=== PATIENT | female | born 1980 | race Caucasian/White ===

== ENCOUNTER 2018-11-02 04:55 | Inpatient (IN) ==
--- NOTE | 2018-11-01 08:59 | HP ---
Chief Complaint - Chief Complaint Date of Service: 10/31/18 Time of Service: 10:00 Chief Complaint: Repeat C/S History of Present Illness: 38 yo at 39 weeks presents for repeat c/s with b/l salpingectomy and possible abdominal scar revision. This complicated by AMA, anemia, prior c/s x 2, and morbid obesity with history of gastric sleeve (BMI 44.6). Medical History (Last Updated 08/08/18 @ 16:47 by Eladia Dee RN) History of gestational diabetes (Acute) Tobacco abuse (Acute) Onset Date: 09/02/14 Sinus tachycardia (Acute) Onset Date: 09/02/14 Obesity (Acute) Onset Date: 10/05/14 Antepartum multigravida of advanced maternal age (Acute) Onset Date: 04/04/18 Anemia affecting (Acute) Onset Date: ~2000 w/pregnancies (1999, 2011, 2017) Gestational diabetes Onset Date: 01/2012 Polycystic ovarian syndrome Onset Date: 2006 Hx of echocardiogram Onset Date: 09/10/14 1. EF=60-65% 2. Left ventricular wall motion normal 3. Normal left ventricular wall thickness 4. No evidence of MVP 5. Mild Tricuspid regurg 6. Rt ventricular systolic pressure is 30-40 mmHg 7. Dilated inferior vena cava suggest increased rt atrial pressure Surgical History: Surgical History (Last Updated 05/27/18 @ 10:35 by Paula Lawrence RN) History of sleeve gastrectomy Onset Date: 09/14/16 [facility] Hx of section Onset Date: 1999 1999: Meconium, Disproportion of fetus and pelvis. 2011: Rpt w/ abruption Family History: Family History (Last Updated 05/27/18 @ 14:53 by Paula Lawrence RN) Father No problems noted. Mother Gastric bypass status for obesity Depression Grandfather , Maternal Diabetes Myocardial infarction Grandmother Hypertension Maternal Social History: Preferred Language Citizen Of [place] (Last Updated 10/31/18 @ 11:48 by Moody Powers DO) No Social History Section defined Review Of Systems (GEN) - Review of Systems Generalized/Overall Review: Present: No Symptoms Reported EENTM: Present: No Symptoms Reported Respiratory: Present: No Symptoms Reported Cardiac: Present: No Symptoms Reported Abdominal: Present: No Symptoms Reported Genitourinary: Present: No Symptoms Reported Musculoskeletal: Present: No Symptoms Reported Neurological: Present: No Symptoms Reported Skin: Present: No Symptoms Reported Endocrine: Present: No Symptoms Reported Allergies/Adverse Reactions: Allergies Allergy/AdvReac Type Severity Reaction Status Date / Time No Known Allergies Allergy Verified 10/31/18 10:36 Home Medications: HOME MEDICATIONS vitamin,calcium,rseplxuh-jgbk-uynls acid tablet 1 tab PO DAILY 05/27/18 [Last Taken Unknown] ferrous sulfate 325 mg (65 mg iron) tablet 325 mg PO DAILY #30 tab 08/08/18 [Last Taken Unknown] Exam - Exam Vital Signs: T 36.4, BP 109/66, P 100, R 16, O2 99%, wt 121.4 kg, ht 1.65 m Constitutional: Present: Alert, Oriented x3, Cooperative, No distress ENT Exam: Present: hearing grossly normal Respiratory: Present: lungs clear, no respiratory distress Cardiovascular/Chest: Present: normal peripheral pulses, regular rate, rhythm Abdomen: Present: soft, nontender, no rebound tenderness, other - gravid /Rectal: Present: Exam deferred Extremity: Present: non-tender, no pedal edema, no calf tenderness Skin Exam: Present: normal color, warm/dry, no cyanosis Lymphatic: Present: no adenopathy Neurologic: Present: alert, normal mood/affect, oriented x 3 Appearance: Present: appropriate appearance, appropriate insight Eye contact: Present: cooperative, good eye contact Thoughts: Present: normal thought pattern Assessment/Plan - Assessment/Plan (1) BMI 40.0-44.9, adult Assessment: Admit on 11/02/18 for repeat section with bilateral salpingectomy and possible abdominal scar revision. Problem: Acute (2) Previous delivery affecting Problem: Acute (3) Antepartum multigravida of advanced maternal age Problem: Acute (4) Anemia affecting Problem: Acute (5) Encounter for sterilization Problem: Acute
[2018-11-02] MEDS ORDERED: DEXTROSE 5%-LACTATED RINGERS 1,000 ML IV PRN ×2 (05:02→10:43)
[2018-11-02] MEDS ORDERED: ceFAZolin SODIUM/DEXTROSE,ISO 2 GM/50 ML BAG IV ONE (05:02)
[2018-11-02] MEDS ORDERED: OXYTOCIN 20 UNITS in RINGER'S SOLUTION,LACTATED 1,000 ML IV ONE (05:02)
[2018-11-02] MEDS: RINGER'S SOLUTION,LACTATED 1,000 ML IV PRN ×3 (05:30→08:43)
[2018-11-02] MEDS ORDERED: HYDROmorphone HCL 2 MG/ML VIAL IV ONE ×2 (10:40→10:53)
[2018-11-02] MEDS ORDERED: SENNOSIDES 8.6 MG TABLET PO PRN (10:43)
[2018-11-02] MEDS ORDERED: SIMETHICONE 80 MG TAB.CHEW PO PRN (10:43)
[2018-11-02] MEDS ORDERED: ONDANSETRON HCL/PF 2 MG/ML VIAL IV PRN (10:43)
[2018-11-02] MEDS ORDERED: oxyCODONE HCL/ACETAMINOPHEN 1 TAB TABLET PO PRN (10:43)
[2018-11-02] MEDS ORDERED: BISACODYL 10 MG SUPP.RECT RC PRN (10:43)
--- NOTE | 2018-11-02 10:56 | ANES ---
Anesthesia Pre Procedure Eval Vitals/Labs: Last Vital Signs Temp 36.3 C 11/02/18 10:30 Pulse 109 H 11/02/18 10:50 Resp 18 11/02/18 10:50 BP 117/67 11/02/18 10:50 Pulse Ox 95 11/02/18 10:50 HOME MEDICATIONS vitamin,calcium,qvjmskoe-jkdd-pzshc acid tablet 1 tab PO DAILY 05/27/18 [Last Taken 10/31/18 21:00] ferrous sulfate 325 mg (65 mg iron) tablet 325 mg PO DAILY #30 tab 08/08/18 [Last Taken Unknown] Allergies/Adverse Reactions: Allergies Allergy/AdvReac Type Severity Reaction Status Date / Time No Known Allergies Allergy Verified 11/02/18 05:07 - Planned Procedure Planned Procedure: Section, bilat Salpingectomy, poss abdomi Medication List Reviewed:: Yes Allergies Verified: Yes Medical History (Last Reviewed 11/02/18 @ 10:55 by Luis Manuel Orourke CRNA) History of gestational diabetes (Acute) Tobacco abuse (Acute) Onset Date: 09/02/14 Sinus tachycardia (Acute) Onset Date: 09/02/14 Obesity (Acute) Onset Date: 10/05/14 Antepartum multigravida of advanced maternal age (Acute) Onset Date: 04/04/18 Anemia affecting (Acute) Onset Date: ~1999 w/pregnancies (1999, 2011, 2017) Gestational diabetes Onset Date: 01/2012 Polycystic ovarian syndrome Onset Date: 2006 Hx of echocardiogram Onset Date: 09/10/14 1. EF=60-65% 2. Left ventricular wall motion normal 3. Normal left ventricular wall thickness 4. No evidence of MVP 5. Mild Tricuspid regurg 6. Rt ventricular systolic pressure is 30-40 mmHg 7. Dilated inferior vena cava suggest increased rt atrial pressure Surgical History (Last Reviewed 11/02/18 @ 10:55 by Luis Manuel Orourke CRNA) History of sleeve gastrectomy Onset Date: 09/14/16 [facility] Hx of section Onset Date: 1999 1999: Meconium, Disproportion of fetus and pelvis. 2011: Rpt w/ abruption Family History (Last Reviewed 11/02/18 @ 10:55 by Luis Manuel Orourke CRNA) Father No problems noted. Mother Gastric bypass status for obesity Depression Grandfather , Maternal Diabetes Myocardial infarction Grandmother Hypertension Maternal - Family Anesthesia History Family History:: no untoward family reactions to anesthesia - Airway/Neck/Teeth Within Normal Limits:: Yes Teeth Condition: Intact Denture Type: None Neck Exam: full range of motion Mallampatti Score: 2 Thyromental (T-M) distance: > 6 cm Mandibulo Hyoid distance: > 3 cm - Respiratory Respiratory: lungs clear, no respiratory distress Smoking Status: Never smoker Sleep Apnea currently treated: No Sleep Apnea by current assessment: No - Cardiovascular Patient History - Cardiac/Respiratory: No pertinent hx Tolerates Activity: Fair Heart Sounds: S1 & S2, Regular - Anesthesia Assessment and Plan ASA Class: PS, II Anesthesia Type Plan: Spinal - Bilat TAP block for postop analgesia Planned difficult intubation/equipment available: No
--- NOTE | 2018-11-02 10:56 | ANES ---
Post Anesthesia Discharge - Transfer of Care Transfer of Care handoff given to nurse: Yes - Discharge from PACU Discharge from PACU when meets criteria: Yes
--- NOTE | 2018-11-02 11:03 | OR ---
Operative Report - Dictated Report Narrative: Indication: 38 year old 3 para 2 at 39-2/7 weeks with prior section 2 desiring permanent sterilization, presents for repeat section with bilateral salpingectomy. status: Planned Pre Operative Diagnosis: 39-2/7 week intrauterine , prior section 2, desires permanent sterilization via bilateral salpingectomy Post Operative Diagnosis: Same. Extensive bladder and uterine adhesions Procedure: Repeat low transverse section. Extensive lysis of bladder, uterine, and tubo-ovarian adhesions. Bilateral salpingectomy Surgeon: Tosha Powers DO Hoeing Row Boss: OR Staff Anesthesia: Spinal, general anesthesia Estimated Blood Loss: 1200 mL Urine Output: 100 mL of dark clear urine Fluids Replacement: 2100 mL of crystalloid Drains: Mcintosh to gravity Surgical Complications: None Specimens: Placenta to freezer Findings: Male born at 0854 on 11/02/2020 with Apgars 7 and 9, weighing 3737 g in cephalic presentation with tight nuchal cord 1. Bladder adhesions to the anterior abdominal wall and lower two thirds of the uterus. Dense uterine serosal adhesions to the anterior abdominal wall. Left tubal ovarian adhesions with otherwise normal-appearing ovary and tube. Normal-appearing right tube and ovary Technique: The patient was taken to the operating room and placed in dorsal supine position with a left lateral tilt. After adequate spinal anesthesia, mcintosh catheter inserted, SCDs placed, and 2 g of Ancef given preoperatively, the previous scar was excised in an elliptical fashion and the abdominal cavity was entered using sharp and blunt dissection. Extensive lysis of adhesions was required to safely remove the bladder from the anterior abdominal wall in order to separate the rectus abdominal muscles. Uterine serosal adhesions to the anterior abdominal wall were then removed to allow access to the uterovesical adhesions which were taken down sharply and bluntly. A rolled lap was placed in the left paracolic gutter. Because of adhesions I was unable to place a rolled lap in the right paracolic gutter. A transverse incision was made in the lower uterine segment and extended laterally and upwardly with digital traction. Clear fluid was noted upon amniotomy. Delivery of the head was difficult because of mom's pannus and the position of the baby. A soft cup vacuum was applied to the vertex to aid in delivery of the head. One easy pull with 500 mmHg maximum pressure and less than 40 seconds total application time. Nuchal cord was reduced and the was noted to be pale and non-vigorous, therefore the cord was immediately clamped and cut and was handed off to awaiting bacteriology professor. The placenta was allowed to deliver spontaneously. The uterus was cleared of clot and debris. Uterine incision was closed with 0 Vicryl using a running stitch. A second imbricating layer was placed. 2 additional [id number] 0 Vicryl sutures were placed to obtain hemostasis. The rolled lap was removed from the abdominal cavitiy. The right fallopian tube was identified and followed out to the fimbriated end. The mesosalpinx and proximal end of the tube were coagulated with Kleppinger's, excised and sent to pathology. The exact same was done on the patient's left side with addition of coagulation and excising tubo-ovarian adhesions at the fimbria and midportion of the tube. Small liters were controlled with the cautery along the peritoneum, uterine serosa, and abdominal wall. A piece of Surgicel was placed over the raw surface of the anterior wall of the uterus. The peritoneum was closed with a running 3-0 Monocryl. The same suture was used to approximate the rectus and pyramidalis muscles. The fascia was closed with a running 0 Vicryl. The subcutaneous layer was closed with a running 3-0 Monocryl. The same suture was used to approximate the subdermal layer. The skin was closed with a running 4-0 Monocryl and Dermabond. Sponge, lap, needle, and instrument count were correct x 2. Disposition: To post anesthesia care unit in good condition History for MU Definition: * The number of deliveries resulting in a live the patient experienced prior to current hospitalization * The previous delivery of live twins or any live multiple gestation is considered one live event. *If primagravida or nulliparous is documented select zero for the number of previous live births. Live Events: 2
--- NOTE | 2018-11-02 13:10 | ANES ---
Post Anesthesia Assessment - Vital Signs Vitals: Last Vital Signs Temp 36.2 C 11/02/18 11:20 Pulse 121 H 11/02/18 12:20 Resp 16 11/02/18 12:20 BP 120/68 11/02/18 12:20 Pulse Ox 94 11/02/18 12:20 Airway Patency: Normal - Mental Status Level Of Consciousness: Awake - Pain Level Pain Score: 5 - N/V Assessment Nausea/Vomiting Presence: None Dehydration:: No
[2018-11-02] MEDS: IBUPROFEN 800 MG TABLET PO PRN ×2 (14:41→20:38)
[2018-11-02] MEDS: oxyCODONE HCL/ACETAMINOPHEN 1 TAB TABLET PO PRN ×2 (17:24→20:38)
[2018-11-02] MEDS: ENOXAPARIN SODIUM 40 MG/0.4 ML SYRG SC SCH (20:37)
[2018-11-02] MEDS: DOCUSATE SODIUM 100 MG CAPSULE PO SCH (20:38)
[2018-11-03] MEDS: oxyCODONE HCL/ACETAMINOPHEN 1 TAB TABLET PO PRN ×5 (02:23→19:31)
[2018-11-03] MEDS: IBUPROFEN 800 MG TABLET PO PRN ×4 (02:23→22:37)
[2018-11-03] MEDS: DOCUSATE SODIUM 100 MG CAPSULE PO SCH ×2 (08:49→20:39)
--- NOTE | 2018-11-03 09:02 | PN ---
Subjective - Date and Time Seen Date: 11/03/18 Time: 08:59 Objective - Vitals Vitals: Last Vital Signs Temp 36.8 C 11/03/18 07:41 Pulse 118 H 11/03/18 07:41 Resp 18 11/03/18 07:41 BP 137/70 11/03/18 07:41 Pulse Ox 95 11/03/18 07:41 Patient denies complaints. Tolerating regular diet. Ambulating without difficulty. Pain well controlled. Lochia wnl. Abdomen - soft, appropriately tender Incision - clean, dry, intact Uterus - firm, at umbilicus -1 No calf tenderness Impression: Post op day #1 s/p repeat section. Mild tachycardia - history of tachycardic episodes in past. Patient completely asymptomatic. Plan: Continue routine post-operative/ care. If patient develops any signs or symptoms related to her tachycardia we'll obtain an EKG. Cauti Physician Documentation - Urinary Catheter Management Urethral (Mcrae) Date of Insertion: 11/02/18 Time of Insertion: 08:20 Date of Removal: 11/03/18 Time of Removal: 22:45 Assessment/Plan - Problems/Diagnosis (1) BMI 40.0-44.9, adult Problem: Acute (2) Previous delivery affecting Problem: Acute (3) Antepartum multigravida of advanced maternal age Problem: Acute (4) Anemia affecting Problem: Acute (5) Encounter for sterilization Problem: Acute
[2018-11-03] MEDS ORDERED: diphenhydrAMINE HCL 50 MG/ML VIAL IV ONE (20:22)
[2018-11-03] MEDS ORDERED: METOCLOPRAMIDE HCL 5 MG/ML VIAL IV PRN (20:22)
[2018-11-03] MEDS: ENOXAPARIN SODIUM 40 MG/0.4 ML SYRG SC SCH (20:51)
[2018-11-04] MEDS: oxyCODONE HCL/ACETAMINOPHEN 1 TAB TABLET PO PRN (02:53)
[2018-11-04] MEDS: DOCUSATE SODIUM 100 MG CAPSULE PO SCH ×2 (09:00→20:13)
[2018-11-04] MEDS: IBUPROFEN 800 MG TABLET PO PRN (09:00)
--- NOTE | 2018-11-04 16:14 | PN ---
Subjective - Date and Time Seen Date: 11/04/18 Time: 16:14 Objective - Vitals Vitals: Last Vital Signs Temp 37.0 C 11/04/18 12:15 Pulse 105 H 11/04/18 12:15 Resp 16 11/04/18 12:15 BP 126/74 11/04/18 12:15 Pulse Ox 97 11/04/18 12:15 Patient denies complaints. Ambulating well. Tolerating regular diet. Pain well controlled. Lochia wnl. Abdomen - soft, appropriately tender Incision - clean, dry, intact Uterus - firm, at umbilicus -2 No calf tenderness Impression: Post op day #2 s/p repeat section. Bilateral salpingectomy Plan: Continue routine post-operative/ care Cauti Physician Documentation - Urinary Catheter Management Urethral (Mcrae) Date of Insertion: 11/02/18 Time of Insertion: 08:20 Date of Removal: 11/03/18 Time of Removal: 22:45 Assessment/Plan - Problems/Diagnosis (1) BMI 40.0-44.9, adult Problem: Acute (2) Previous delivery affecting Problem: Acute (3) Antepartum multigravida of advanced maternal age Problem: Acute (4) Anemia affecting Problem: Acute (5) Encounter for sterilization Problem: Acute
[2018-11-04] MEDS: ENOXAPARIN SODIUM 40 MG/0.4 ML SYRG SC SCH (20:13)
[2018-11-05] MEDS: oxyCODONE HCL/ACETAMINOPHEN 1 TAB TABLET PO PRN (06:02)
[2018-11-05] MEDS: DOCUSATE SODIUM 100 MG CAPSULE PO SCH (10:05)
[2018-11-05 10:28] VITALS: BP 124/72
--- NOTE | 2018-11-05 10:36 | PN ---
Subjective - Date and Time Seen Date: 11/05/18 Time: 10:35 Objective - Vitals Vitals: Last Vital Signs Temp 36.5 C 11/05/18 10:27 Pulse 100 11/05/18 10:27 Resp 20 11/05/18 10:27 BP 124/72 11/05/18 10:27 Pulse Ox 96 11/05/18 10:27 Patient denies complaints. Ambulating without difficulty. Tolerating regular diet. Pain well controlled. Lochia wnl. Abdomen - soft, appropriately tender Incision - clean, dry, intact Uterus - firm, at umbilicus -3 No calf tenderness Impression: Post op day #3 s/p repeat section with bilateral salpingectomy. Plan: Routine discharge instructions Cauti Physician Documentation - Urinary Catheter Management Urethral (Mcrae) Date of Insertion: 11/02/18 Time of Insertion: 08:20 Date of Removal: 11/03/18 Time of Removal: 22:45 Assessment/Plan - Problems/Diagnosis (1) BMI 40.0-44.9, adult Problem: Acute (2) Previous delivery affecting Problem: Acute (3) Antepartum multigravida of advanced maternal age Problem: Acute (4) Anemia affecting Problem: Acute (5) Encounter for sterilization Problem: Acute
== END 2018-11-05 14:30 | disposition home or self-care (01) | DRG 784 ==
LOC: OB 04:55 → MS 11-04 04:23
PROVIDERS: ADMIT Obstetrics & Gynecology; ATTEND Obstetrics & Gynecology
CPT/HCPCS: 59025; 88302